=== PATIENT | male | born 1985 | race Two or more races ===

== ENCOUNTER 2016-11-17 21:18 | Emergency (ER) | payer MEDICAID ==
[~2016-11-17] VITALS: Ht 177.8 cm; Wt 74.8 kg
[2016-11-17 21:35] VITALS: BP 120/79
== END 2016-11-18 | disposition left against medical advice (07) ==
LOC: ER 21:32
DX: S61.412A Laceration without foreign body of left hand, initial encounter (principal); Z53.21 Procedure and treatment not carried out due to patient leaving prior to being seen by health care provider; W26.0XXA Contact with knife, initial encounter; Y93.89 Activity, other specified; Y99.8 Other external cause status; Y92.89 Other specified places as the place of occurrence of the external cause

== ENCOUNTER 2020-11-11 09:15 | Emergency (ER) | payer MEDICAID ==
[~2020-11-11] VITALS: Ht 177.8 cm; Wt 79.4 kg
[2020-11-11 09:38] VITALS: BP 118/72
== END 2020-11-11 10:51 | disposition home or self-care (01) ==
LOC: ER 09:15
DX: L24.9 Irritant contact dermatitis, unspecified cause (principal)